=== PATIENT | male | born 1970 | race Two or more races ===

== ENCOUNTER 2019-06-17 02:47 | Inpatient (IN) | payer OTHER, MEDICAID ==
[~2019-06-17] VITALS: Ht 172.7 cm; Wt 93.4 kg
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
--- NOTE | 2019-06-17 02:53 | NUR ---
LUIS E OFFICER RALF # [id number] AT BEDSIDE
[2019-06-17] MEDS ORDERED: CLONIDINE HCL 0.1 MG TABLET ONE ×2 (03:03→04:40)
--- NOTE | 2019-06-17 03:08 | NUR ---
STAFF COMMAND AND CONTROL OFFICER AT BEDSIDE FOR BLOOD DRAW
--- NOTE | 2019-06-17 03:08 | NUR ---
EKG AT BEDSIDE
[2019-06-17 03:25] LABS: CREATININE 1.2 mg/dL (0.6-1.3)
[2019-06-17] MEDS ORDERED: CLONIDINE HCL 0.1 MG TABLET PO ONE ×2 (03:30→05:00)
[2019-06-17 05:42] LABS: BASOPHILS % (AUTO) 0.5 % (0.0-2.0); EOSINOPHILS % (AUTO) 1.1 % (0.0-6.0); HEMATOCRIT 35 % (39-51); HEMOGLOBIN 11.6 g/dL (13.5-17.5); LYMPHOCYTES # (AUTO) 1.1 /CMM (0.8-4.8); LYMPHOCYTES % (AUTO) 19.6 % (20.0-44.0); MEAN CORPUSCULAR HGB CONC 33 g/dl (31.0-36.0); MEAN CORPUSCULAR VOLUME 93 fL (80-96); MONOCYTES # (AUTO) 0.7 /CMM (0.1-1.30); MONOCYTES % (AUTO) 11.5 % (2.0-12.0); NEUTROPHILS # (AUTO) 3.9 /CMM (1.8-8.9); NEUTROPHILS % (AUTO) 67.3 % (43.0-81.0); PLATELET COUNT (AUTO) 200 /CMM (150-450); RED BLOOD CELL COUNT(AUTO) 3.73 MIL/uL (4.5-6.0); WHITE BLOOD COUNT (AUTO) 5.8 K/uL (4.3-11.0)
--- NOTE | 2019-06-17 05:52 | NUR ---
BLOOD DRAWN AND GIVEN TO LAB
[2019-06-17 05:55] LABS: ALBUMIN 3.4 g/dL (3.4-5.0); BILIRUBIN,DIRECT 0.1 mg/dL (0.0-0.2); BILIRUBIN,TOTAL 0.5 mg/dL (0.2-1.0); TOTAL PROTEIN, SERUM 7.2 g/dL (6.4-8.2)
[2019-06-17] MEDS ORDERED: NITROGLYCERIN PACKET 1 GM PACKET ONE (05:59)
[2019-06-17] MEDS ORDERED: NITROGLYCERIN PACKET 1 GM PACKET TD ONE (06:00)
[2019-06-17] MEDS ORDERED: ASPIRIN 325 MG TABLET ONE (06:00)
[2019-06-17] MEDS ORDERED: ASPIRIN 81 MG TAB.CHEW PO ONE (06:00)
[2019-06-17] MEDS ORDERED: ASPIRIN 81 MG TAB.CHEW ONE (06:01)
[2019-06-17] MEDS ORDERED: MAGNESIUM HYDROXIDE 30 ML UDC PO PRN (06:30)
[2019-06-17] MEDS ORDERED: ACETAMINOPHEN 325 MG TABLET PO PRN (06:30)
[2019-06-17] MEDS ORDERED: HYDROCODONE/APAP 5/325MG 1 EACH TABLET PO PRN (06:30)
[2019-06-17] MEDS ORDERED: Z GUARD REMEDY 2 OZ OINT TP PRN (06:30)
[2019-06-17] MEDS ORDERED: ONDANSETRON HCL/PF 4 MG/2 ML VIAL IVP PRN (06:30)
[2019-06-17] MEDS ORDERED: MAG HYDROX/AL HYDROX/SIMETH 30 ML UDC PO PRN (06:30)
--- NOTE | 2019-06-17 07:25 | NUR ---
NURSE IS STILL IN A MEETING W/ CHRISTOPHE
--- NOTE | 2019-06-17 08:20 | NUR ---
report given to Chio DECKER for lucero.
--- NOTE | 2019-06-17 09:02 | NUR ---
ADOBE ARCHITECTSENIOR IT RECRUITER NOTES Received Patient via gurney at this time. Patient in stable condition and under custody. VS stable with no acute distress. Breathing even and unlabored on room air with no respiratory distress. Denies pain. No signs and symptoms of pain. Skin assessment pictures taken and placed in chart. Telemonitor in place and patent reading SR with PACs, inverted T, bigeminy and HR-65. 18g PIV on RAC clean, intact, patent and flushing well. Safety precautions in place. Bed locked and set to lowest position with side rails x 2 up. Right hand cuffed to bed. All needs rendered at this time. Call light within reach. Will continue to monitor.
[2019-06-17] MEDS ORDERED: CLON0.1T PO (09:59)
[2019-06-17] MEDS ORDERED: CLONIDINE HCL 0.1 MG TABLET PO PRN (12:00)
--- NOTE | 2019-06-17 15:39 | NUR ---
EDITOR MAGAZINE NOTES BP 169/99, offered and refused Clonidine 0.1mg tablet. Explained risks and benefits of medication. Patient still refused. Patient is stable condition. Will continue to monitor.
[2019-06-17 18:16] VITALS: BP 169/99
--- NOTE | 2019-06-17 19:45 | NUR ---
[facility] CLOSING NOTES Patient awake and resting in bed. Patient in stable condition and under custody. VS stable with no acute distress. Breathing even and unlabored on room air with no respiratory distress. Denies pain. No signs and symptoms of pain. Telemonitor in place and patent reading SR with PACs, inverted T and HR-63. 18g PIV on RAC clean, intact, patent and flushing well. Safety precautions in place. Bed locked and set to lowest position with side rails x 2 up. Bilateral hands cuffed to bed, skin warm and intact. All needs rendered at this time. Call light within reach. Will endorse discharge plan to oncoming shift.
[2019-06-17] MEDS ORDERED: ENALAPRILAT DIHYD. (2.5MG/ML) 1.25 MG/ML VIAL IV ONE ×2 (21:42→22:00)
[2019-06-17 21:44] VITALS: BP 209/111
--- NOTE | 2019-06-17 21:49 | NUR ---
MANUFACTURING ADVISOR NOTES Pt IS CLEARED FOR DISCHARGE. SPOKE WITH DR SID SERVIN TO INFORM HIM THAT Pt's BP WAS ELEVATED 209/111; Pt IS REFUSING ALL PO MEDS, & HAS NO PRN IV BP MED. GARETH GAVE X1 ORDER FOR VASOTEC 2.5MG IV. CARRIED OUT ORDER. Pt [place] WITH POLICE CUSTODY WITH [place] [facility] [place] S/S OF ACUTE DISTRESS OR SOB NOTED. Pt WAS SAFELY TRANSFERRED TO [facility]. SAFETY MEASURES IN PLACE.
== END 2019-06-17 21:45 | DRG 305 ==
LOC: ER 02:48 → TELE 06:12
DX: I16.0 Hypertensive urgency (principal); D64.9 Anemia, unspecified; R79.89 Other specified abnormal findings of blood chemistry; F99 Mental disorder, not otherwise specified
CPT/HCPCS: 36415; 71045-TC; 80048-TC; 80076-TC; 83880; 84484-TC; 85025-TC; 93307-TC; G0378; J3490